=== PATIENT | male | born 1985 | race African-American/Black ===

== ENCOUNTER → 2019-11-05 | Emergency (ER) | payer MEDICARE, OTHER ==
[~2019-11-05] VITALS: Ht 182.9 cm; Wt 120.2 kg
[~2019-11-05] MED LIST: Phenytoin 500 MG in NS 110 ML IVPB ONE; levETIRAcetam 1,000mg/NS100ml 100 ML IVPB ONE
[2019-11-05 20:05] VITALS: BP 120/76
--- NOTE | 2019-11-05 20:26 | Emergency Room Report ---
History of Present Illness General Chief Complaint: Seizure Source: Patient, EMS Present Illness HPI Patient is a 34-year-old male past medical history of seizure disorder on Dilantin who presents to the ER status post seizure. Patient was brought in by EMS. Per EMS patient was walking with his friend when he had a generalized tonic-clonic seizure. Patient's friend and EMS do not report any trauma. Patient is now more awake and alert. He states that he did not take his morning dose of Dilantin which he is supposed to take twice daily. He denies any headache, blurry vision, chest pain, shortness of breath, abdominal pain, focal weakness, nausea or vomiting. Allergies: Coded Allergies: No Known Allergies (Unverified , 11/05/19) COVID-19 Screening Contact w/high risk pt: No Recent Travel to affected area: No Experienced COVID-19 symptoms?: No COVID-19 Testing performed FIRE [employer]AF[employer] DIRECTOR: No Patient History Past Medical History: seizures Past Surgical History: none Social History: Reports: smoking Nursing Documentation-PM Hx Seizures: Yes Review of Systems All Other Systems: negative except mentioned in HPI Physical Exam Vital Signs Date Time Temp Pulse Resp B/P (MAP) Pulse Ox O2 Delivery O2 Flow Rate FiO2 11/05/19 19:58 98.8 98 18 132/80 (97) 100 Sp02 EP Interpretation: reviewed, normal General Appearance: no apparent distress, alert, GCS 15, non-toxic Head: normocephalic, atraumatic Eyes: bilateral eye normal inspection, bilateral eye PERRL ENT: hearing grossly normal, normal pharynx, no angioedema, normal voice Neck: full range of motion, supple/symm/no masses Respiratory: chest non-tender, lungs clear, normal breath sounds, speaking full sentences Cardiovascular #1: regular rate, rhythm, no edema Gastrointestinal: normal bowel sounds, non tender, soft, non-distended, no guarding, no rebound Rectal: deferred Genitourinary: normal inspection, no CVA tenderness Musculoskeletal: back normal, normal range of motion, no calf tenderness, gait/ station normal, non-tender Neurologic: alert, motor strength/tone normal, oriented x3, sensory intact, responsive, speech normal Psychiatric: no suicidal/homicidal ideation Skin: no rash Lymphatic: no adenopathy Medical Decision Making Diagnostic Impression: Primary Impression: Seizure disorder ER Course After patient arrival patient is alert and oriented x3. He states that he does not want any further work-up and is signing out AMA. The patient is of adult age and has sound mind with no evidence of altered mental status suggesting metabolic or infections etiologies. I explained in layman's terms the risk of leaving against medical advise including and significant comorbidity. The patient was given reasonable options. This was explained in front of the patient and the bedside nurse RN. The AMA for was signed and witnessed by a nurse and patient. EKG Diagnostic Results EKG Time: 20:13 EP Interpretation: MD Marco Rate: normal Rhythm: NSR ST Segments: no acute changes ASA given to the pt in ED: No Rhythm Strip Diag. Results Rhythm Strip Time: 20:25 EP Interpretation: yes - MD Marco Rate: 92 Rhythm: NSR, no PVC's, no ectopy Last Vital Signs Date Time Temp Pulse Resp B/P (MAP) Pulse Ox O2 Delivery O2 Flow Rate FiO2 11/05/19 19:58 98.8 98 18 132/80 (97) 100 Disposition: AGAINST MEDICAL ADVICE Condition: Unknown Rosa Elena Lara M.D. November 05, 2019 20:26
[2019-11-05 20:45] VITALS: BP 126/80
[2019-11-05 21:16] LABS: ANION GAP 13 mmol/L (5-15); BLOOD UREA NITROGEN 11 mg/dL (7-18); CALCIUM 8.9 MG/DL (8.5-10.1); CARBON DIOXIDE 22 MMOL/L (21-32); CHLORIDE 108 MMOL/L (98-107); CREATININE 1.1 MG/DL (0.55-1.30); POTASSIUM 4.3 MMOL/L (3.5-5.1); SODIUM 143 MMOL/L (136-145)
[2019-11-05 21:20] LABS: PHOSPHORUS 2.7 MG/DL (2.5-4.9)
== END | disposition left against medical advice (07) ==
LOC: EDBD 20:02 → EMR 21:04
DX: G40.909 Epilepsy, unspecified, not intractable, without status epilepticus (principal); F17.200 Nicotine dependence, unspecified, uncomplicated; Z53.29 Procedure and treatment not carried out because of patient's decision for other reasons; Z79.899 Other long term (current) drug therapy
CPT/HCPCS: 80048; 83735; 84100; 93005; 96374; 99283; J1953